=== PATIENT | female | born 1990 | race Two or more races ===

== ENCOUNTER → 2021-10-01 | Outpatient (CLI) | payer MEDICAID ==
[2021-10-01 10:04] LABS: Basophils # (auto) 0.1 10 ^3/uL (0-0.2); Basophils % (auto) 0.4 % (0.0-2.0); Eosinophils # (auto) 0.1 10 ^3/uL (0-0.8); Eosinophils % (auto) 0.4 % (0.0-7.0); Hematocrit 37.7 % (36.0-46.0); Hemoglobin 13.4 g/dL (12.2-16.2); Lymphocytes # (auto) 2.5 10 ^3/uL (0.4-5.4); Lymphocytes % (auto) 18.4 % (10.0-50.0); Mean Corpuscular Hemoglobin 34.2 pg (28.0-32.0); Mean Corpuscular Hgb Conc. 35.5 g/dL (32.0-36.0); Mean Corpuscular Volume 96.1 fL (80.0-100.0); Monocytes # (auto) 0.9 10 ^3/uL (0-1.3); Monocytes % (auto) 6.9 % (0.0-12.0); Neutrophils % (auto) 73.9 % (37.0-80.0); Nucleated Red Blood Cells % 0.1 %; Red Blood Cells 3.92 10^6/uL (4.0-5.20); Red Cell Distribution Width 13.1 % (11.8-14.3); White Blood Cell 13.5 10^3/uL (4.4-10.8)
[2021-10-01 10:15] LABS: Alcohol, Urine < 3.0 mg/dL (0-10); Amphetamine Screen, Urine NEGATIVE (NEGATIVE); Barbiturate Scree,Urine NEGATIVE (NEGATIVE); Benzodiazephine Screen, Urine NEGATIVE (NEGATIVE); Cannabinoid Screen, Urine NEGATIVE (NEGATIVE); Cocaine Screen, Urine NEGATIVE (NEGATIVE); Opiate Scree,Urine NEGATIVE (NEGATIVE); Phencyclidine Screen, Urine NEGATIVE (NEGATIVE)
== END | disposition home or self-care (01) ==
LOC: LAB 08:54
PROVIDERS: ATTEND Obstetrics & Gynecology
DX: Z34.80 Encounter for supervision of other normal pregnancy, unspecified trimester (principal)
CPT/HCPCS: 36415; 80307; 82951; 83036; 84112; 85025

== ENCOUNTER → 2021-11-20 | Outpatient (CLI) | payer MEDICAID ==
[2021-11-20 09:44] LABS: Basophils # (auto) 0 10 ^3/uL (0-0.2); Basophils % (auto) 0.3 % (0.0-2.0); Eosinophils # (auto) 0.1 10 ^3/uL (0-0.8); Eosinophils % (auto) 0.5 % (0.0-7.0); Hematocrit 39.6 % (36.0-46.0); Hemoglobin 13.3 g/dL (12.2-16.2); Lymphocytes # (auto) 2.7 10 ^3/uL (0.4-5.4); Lymphocytes % (auto) 20.8 % (10.0-50.0); Mean Corpuscular Hemoglobin 32.5 pg (28.0-32.0); Mean Corpuscular Hgb Conc. 33.7 g/dL (32.0-36.0); Mean Corpuscular Volume 96.4 fL (80.0-100.0); Monocytes # (auto) 0.9 10 ^3/uL (0-1.3); Monocytes % (auto) 6.9 % (0.0-12.0); Neutrophils # (auto) 9.3 10 ^3/uL (1.6-8.6); Neutrophils % (auto) 71.5 % (37.0-80.0); Red Blood Cells 4.11 10^6/uL (4.0-5.20); Red Cell Distribution Width 12.8 % (11.8-14.3)
[2021-11-21 08:06] LABS: RPR Non Reactive (Non Reactive)
== END | disposition home or self-care (01) ==
LOC: LAB 09:28
PROVIDERS: ATTEND Obstetrics & Gynecology
DX: Z34.80 Encounter for supervision of other normal pregnancy, unspecified trimester (principal); Z3A.00 Weeks of gestation of pregnancy not specified
CPT/HCPCS: 36415; 84112; 85025; 86592

== ENCOUNTER 2021-11-26 08:34 | Observation (INO) | payer MEDICAID ==
[~2021-11-26] VITALS: Ht 160 cm; Wt 90.7 kg
[2021-11-26] MEDS ORDERED: PREN-96 PO (09:05)
== END 2021-11-26 12:02 | disposition home or self-care (01) ==
LOC: UNDOADMOB 08:34 → LDRP 08:34
PROVIDERS: ADMIT Obstetrics & Gynecology; ATTEND Obstetrics & Gynecology
DX: O36.8130 Decreased fetal movements, third trimester, not applicable or unspecified (principal); Z3A.36 36 weeks gestation of pregnancy
CPT/HCPCS: 59025; 76818; 81002; 94760; G0378

== ENCOUNTER 2021-12-10 09:58 | Observation (INO) | payer MEDICAID ==
[~2021-12-10] VITALS: Ht 160 cm; Wt 93.4 kg
[~2021-12-10 09:58] MED LIST: PREN-96 PO
[2021-12-10 11:35] LABS: Basophils # (auto) 0 10 ^3/uL (0-0.2); Basophils % (auto) 0.3 % (0.0-2.0); Eosinophils # (auto) 0.1 10 ^3/uL (0-0.8); Eosinophils % (auto) 0.7 % (0.0-7.0); Hematocrit 39.4 % (36.0-46.0); Hemoglobin 13.3 g/dL (12.2-16.2); Lymphocytes # (auto) 2.3 10 ^3/uL (0.4-5.4); Lymphocytes % (auto) 23.7 % (10.0-50.0); Mean Corpuscular Hemoglobin 32.6 pg (28.0-32.0); Mean Corpuscular Hgb Conc. 33.7 g/dL (32.0-36.0); Mean Corpuscular Volume 96.6 fL (80.0-100.0); Monocytes # (auto) 0.8 10 ^3/uL (0-1.3); Monocytes % (auto) 8.3 % (0.0-12.0); Neutrophils # (auto) 6.6 10 ^3/uL (1.6-8.6); Red Blood Cells 4.08 10^6/uL (4.0-5.20); Red Cell Distribution Width 12.8 % (11.8-14.3); White Blood Cell 9.9 10^3/uL (4.4-10.8)
[2021-12-10 11:42] LABS: Urine Bacteria NONE SEEN /hpf (None Seen); Urine Blood Negative /uL (Negative); Urine Mucus FEW (None Seen); Urine Specific Gravity 1.028 (1.001-1.035); Urine WBC 3 /hpf (0 - 5)
[2021-12-10 11:45] LABS: Protein, Urine 33.7 mg/dL (0.0-11.9)
[2021-12-10 11:48] LABS: Albumin 2.6 g/dL (3.4-5.0); Calcium 8.7 mg/dL (8.5-10.1); Potassium 3.9 mmol/L (3.5-5.1)
[2021-12-10 11:53] LABS: BUN/Creatinine Ratio 11.8; Bilirubin, Total 0.4 mg/dL (0.2-1.0); Total Protein 6.8 g/dL (6.4-8.2); Uric Acid 5.1 mg/dL (2.6-6.0)
[2021-12-10 11:54] LABS: INR 0.91 (0.9-1.15); Partial Thromboplastin Time 27.3 sec (24.6-33.4)
== END 2021-12-10 12:40 | disposition home or self-care (01) ==
LOC: LDRP 09:58
PROVIDERS: ADMIT Obstetrics & Gynecology; ATTEND Obstetrics & Gynecology
DX: O13.3 Gestational [pregnancy-induced] hypertension without significant proteinuria, third trimester (principal); Z3A.38 38 weeks gestation of pregnancy; Z79.899 Other long term (current) drug therapy
CPT/HCPCS: 36415; 59025; 80053; 81001; 81002; 82570; 84156; 84550; 85025; 85610; 85730; 94760; G0378

== ENCOUNTER 2021-12-12 08:23 | Observation (INO) | payer MEDICAID ==
[2021-12-12 09:16] LABS: Protein, Urine 30.7 mg/dL (0.0-11.9)
[2021-12-12 10:16] LABS: 24 Hr. Total Protein, Urine 353.05 mg/24 Hr (<149.1)
== END 2021-12-12 10:17 | disposition home or self-care (01) ==
LOC: UNDOADMOB 08:23 → LDRP 08:23
PROVIDERS: ADMIT Obstetrics & Gynecology; ATTEND Obstetrics & Gynecology
DX: O13.3 Gestational [pregnancy-induced] hypertension without significant proteinuria, third trimester (principal); Z3A.38 38 weeks gestation of pregnancy
CPT/HCPCS: 59025; 81002; 84156; 94760; G0378

== ENCOUNTER 2021-12-14 06:56 | Inpatient (IN) | payer MEDICAID ==
[~2021-12-14] VITALS: Ht 160 cm; Wt 92.5 kg
[2021-12-14] MEDS ORDERED: PROMETHAZINE HCL 25 MG/ML 1ML IV PRN (08:00)
[2021-12-14] MEDS ORDERED: BUTORPHANOL TARTRATE 2 MG/1 ML VIAL IV PRN ×2 (08:00)
[2021-12-14] MEDS ORDERED: LIDOCAINE 2%HCL (LOCAL ANESTH.) INJ 10ml MDV IJ PRN (08:00)
[2021-12-14] MEDS: LACTATED RINGER'S 1,000 ML IV SCH ×3 (08:43→15:53)
[2021-12-14 08:44] LABS: Basophils # (auto) 0.1 10 ^3/uL (0-0.2); Basophils % (auto) 0.6 % (0.0-2.0); Eosinophils # (auto) 0.1 10 ^3/uL (0-0.8); Eosinophils % (auto) 0.4 % (0.0-7.0); Hematocrit 39.3 % (36.0-46.0); Hemoglobin 13.6 g/dL (12.2-16.2); Lymphocytes # (auto) 2.2 10 ^3/uL (0.4-5.4); Lymphocytes % (auto) 16.4 % (10.0-50.0); Mean Corpuscular Hgb Conc. 34.6 g/dL (32.0-36.0); Mean Corpuscular Volume 95.5 fL (80.0-100.0); Monocytes # (auto) 0.7 10 ^3/uL (0-1.3); Monocytes % (auto) 5.1 % (0.0-12.0); Neutrophils # (auto) 10.5 10 ^3/uL (1.6-8.6); Neutrophils % (auto) 77.5 % (37.0-80.0); Red Blood Cells 4.11 10^6/uL (4.0-5.20); Red Cell Distribution Width 12.9 % (11.8-14.3); White Blood Cell 13.5 10^3/uL (4.4-10.8)
[2021-12-14 09:01] LABS: Albumin 2.9 g/dL (3.4-5.0); Potassium 3.9 mmol/L (3.5-5.1)
[2021-12-14 09:04] LABS: BUN/Creatinine Ratio 14.3; Bilirubin, Total 0.3 mg/dL (0.2-1.0); Total Protein 6.7 g/dL (6.4-8.2)
[2021-12-14 09:13] LABS: INR 0.88 (0.9-1.15)
[2021-12-14 09:29] LABS: Urine Bacteria NONE SEEN /hpf (None Seen); Urine Blood Negative /uL (Negative); Urine Specific Gravity 1.011 (1.001-1.035); Urine WBC <1 /hpf (0 - 5)
[2021-12-14 09:30] LABS: Alcohol, Urine < 3.0 mg/dL (0-10); Amphetamine Screen, Urine NEGATIVE (NEGATIVE); Barbiturate Scree,Urine NEGATIVE (NEGATIVE); Benzodiazephine Screen, Urine NEGATIVE (NEGATIVE); Cannabinoid Screen, Urine NEGATIVE (NEGATIVE); Cocaine Screen, Urine NEGATIVE (NEGATIVE); Opiate Scree,Urine NEGATIVE (NEGATIVE); Phencyclidine Screen, Urine NEGATIVE (NEGATIVE); Protein, Urine 32.9 mg/dL (0.0-11.9)
[2021-12-14] MEDS ORDERED: ePHEDrine SULFATE 50 MG/ML AMP IV ONE (10:00)
[2021-12-14] MEDS ORDERED: NALOXONE HCL 0.4 MG/ML VIAL IV ONE (10:00)
[2021-12-14] MEDS ORDERED: ROPIVACAINE HCL 200 ML EPI SCH (10:00)
[2021-12-14] MEDS ORDERED: LACTATED RINGER'S 1,000 ML IV ONE ×2 (10:00→13:45)
[2021-12-14] MEDS ORDERED: LIDOCAINE HCL 2 %PF INJ 10ML AMP IJ ONE ×5 (10:23→13:45)
[2021-12-14] MEDS ORDERED: LACT. RINGERS/OXYTOCIN 20UNITS 1,000 ML IV SCH (11:15)
[2021-12-14] MEDS ORDERED: miSOPROStol 100 mcg TAB SL PRN (11:15)
[2021-12-14] MEDS ORDERED: METHYLERGONOVINE MALEATE 0.2 MG/ML AMP IM PRN (11:15)
[2021-12-14] MEDS ORDERED: miSOPROStol 100 mcg TAB PR PRN (11:15)
[2021-12-14] MEDS ORDERED: LACT. RINGERS/OXYTOCIN 20UNITS 500 ML IV ONE ×2 (11:15→11:45)
[2021-12-14] MEDS ORDERED: MAGNESIUM SULFATE 100 ML IV ONE (16:22)
[2021-12-14] MEDS: DERMOPLAST 60ML BOTTLE TOP PRN ×2 (17:16→17:29)
[2021-12-14] MEDS: WITCH HAZEL-GLYCERIN PAD TOP PRN ×2 (17:16→17:29)
[2021-12-14] MEDS: PHISODERM TOP SOLN 240ML BTL TOP PRN ×2 (17:16→17:29)
[2021-12-14] MEDS ORDERED: ONDANSETRON ODT 4 MG TAB PO PRN (18:30)
[2021-12-14] MEDS ORDERED: ACETAMINOPHEN 325 MG TAB PO PRN (18:30)
[2021-12-14 19:30] VITALS: BP 121/88
[2021-12-14] MEDS ORDERED: TETANUS-DIPTH-ACEL PERTUSSIS 0.5ML SYR Tdap IM ONE (19:45)
[2021-12-14] MEDS ORDERED: DOCUSATE SOD 100 MG CAP PO SCH (22:00)
[2021-12-14 23:00] VITALS: BP 124/62
[2021-12-15] MEDS: IBUPROFEN 600 MG TAB PO PRN ×3 (03:05→16:12)
[2021-12-15 03:13] VITALS: BP 114/57
[2021-12-15 06:06] LABS: RPR Non Reactive (Non Reactive)
[2021-12-15 06:55] VITALS: BP 115/62
[2021-12-15] MEDS ORDERED: ROPIVACAINE HCL 200 ML EPI SCH (10:00)
[2021-12-15 11:00] VITALS: BP 121/69
[2021-12-15 15:20] VITALS: BP 117/76
[2021-12-15 21:32] VITALS: BP 128/79
== END 2021-12-15 21:32 | disposition home or self-care (01) | DRG 560 ==
LOC: LDRP 06:56 → OBSVTOIN 07:55 → LDRP 09:09
PROVIDERS: ADMIT Obstetrics & Gynecology; ATTEND Obstetrics & Gynecology
PROC: 10E0XZZ Delivery of Products of Conception, External Approach (ICD-10-PCS; principal; 2021-12-14)
PROC: 0KQM0ZZ Repair Perineum Muscle, Open Approach (ICD-10-PCS; 2021-12-14)
PROC: 0W8NXZZ Division of Female Perineum, External Approach (ICD-10-PCS; 2021-12-14)
PROC: 3E0R3BZ Introduction of Anesthetic Agent into Spinal Canal, Percutaneous Approach (ICD-10-PCS; 2021-12-14)
PROC: 00HU33Z Insertion of Infusion Device into Spinal Canal, Percutaneous Approach (ICD-10-PCS; 2021-12-14)
DX: O69.81X0 Labor and delivery complicated by cord around neck, without compression, not applicable or unspecified (principal); Z37.0 Single live birth; O13.4 Gestational [pregnancy-induced] hypertension without significant proteinuria, complicating childbirth; O70.1 Second degree perineal laceration during delivery; Z3A.38 38 weeks gestation of pregnancy; Z20.822 Contact with and (suspected) exposure to COVID-19
CPT/HCPCS: 36415; 59025; 59409; 62282; 80053; 80307; 81001; 81002; 82570; 83615; 84156; 84550; 85025; 85379; 85384; 85610; 85730; 86592; 86850; 86900; 86901; 90715; 94760; 96360; 96361; 96365; 96366; G0378; J2590